=== PATIENT | female | born 1980 | race Caucasian/White ===

== ENCOUNTER 2021-06-25 04:30 | Emergency (ER) | payer OTHER, SELFPAY ==
--- NOTE | ~2021-06-25 | XR_ITS ---
XR wrist RT min 3V DATE: 06/25/2021 05:11 INDICATION: Fall. Wrist pain, swelling and deformity TECHNIQUE: 4 views COMPARISON: None FINDINGS: There is a comminuted impacted intra-articular fracture of the distal radius with up to 4.7 mm dorsal and 2 mm medial displacement, approximately 17 degrees apex anterior angulation with assoc iated dorsal inclination of distal radial articular surface. Small cortical chip fractures are laterally displaced from the tip of the ulnar styloid process. There is suggestion of widening at the radial ulnar joint suggesting possible radial ulnar subluxatio n. Radiocarpal alignment is intact. IMPRESSION: Impacted comminuted intra-articular fracture distal radius Small cortical avulsion fractures of the tip of the ulnar styloid process Possible radial ulnar subluxation Reviewed, dictated and finalized at location A.
[2021-06-25 04:47] VITALS: BP 124/78; PULSE 72; RESP 20; TEMP 36.6; O2SAT 98
--- NOTE | 2021-06-25 04:51 | ED.UPPEXIN ---
HPI - Extremity Injury (Upper) General Chief Complaint: Extremity Injury, Upper Stated Complaint: Right wrist injury Time Seen by Provider: 06/25/21 04:51 Source: patient Mode of arrival: ambulatory Limitations: no limitations History of Present Illness HPI narrative: 41-year-old woman comes in today complaining of right wrist pain and swelling that started after she fell while walking in her home this morning. She tripped over 1 of her children's toys and fell on her outstretched hand. She denies any numbness or tingling. complaint: injury to: right and wrist Onset (ago): minute(s) (30) Other Extremity Injury: Right: wrist Other injuries: none Place: home Severity: moderate Relieving factors: immobilization and rest Exacerbating factors: movement of extremity and other (Palpation) Context: fall Associated symptoms: denies other symptoms Related Data Allergies Allergy/AdvReac Type Severity Reaction Status Date / Time aspirin Allergy Unknown Verified 06/25/21 04:54 Review of Systems Review of Systems: All systems reviewed & are unremarkable except as noted in HPI and below Constitutional: Constitutional: Denies chills and Denies fever(s) Eyes: Eyes: Denies change in vision and Denies photophobia ENT: Denies epistaxis and Denies sore throat Cardiovascular: Cardiovascular: Denies chest pain and Denies radiating jaw, neck or arm pain Respiratory: Respiratory: Denies cough Gastrointestinal: Gastrointestinal: Denies abdominal pain, Denies nausea and Denies vomiting Genitourinary: Genitourinary: Denies nocturia and Denies dysuria Musculoskeletal: Musculoskeletal: Reports as per HPI, Denies back pain, Reports arthralgias and Reports joint swelling Integumentary/Breasts: Skin/Breast: Denies pruritus, Denies erythema and Denies rash Neurologic: Denies vertigo, Denies dizziness, Denies syncope, Denies focal weakness and Denies numbness Hematologic/Lymphatic: Hematologic/Lymphatic: Denies easy bleeding and Denies easy bruising Allergic/Immunologic: Allergic/Immunologic: Denies lip swelling and Denies throat swelling [facility] Surgical History Surgical History (Updated 06/25/21 @ 04:59 by Marcelo Aldridge MD) History of lumpectomy of both breasts Social History Social History (Updated 06/25/21 @ 05:00 by Marcelo Aldridge MD) Smoking status: Current every day smoker Alcohol intake: current Alcohol use details: Daily Substance use: current Substance use type: marijuana Living arrangements: with family Exam Const: General: healthy appearing and alert Orientation/consciousness: patient oriented x3 Limitations: no limitations Other: Moderate acute distress. Eyes: Conjunctivae: conjunctivae normal Pupils: Equal, round and reactive pupils present EOM: EOMs intact bilaterally Resp: Effort & Inspection: normal respiratory effort and not labored Auscultation: clear to auscultation bilaterally, no rales, no rhonchi and no wheezes Cardio: Rate: regular rate Rhythm: regular rhythm Heart sounds: no murmurs Skin: General skin exam: normal color, no jaundice and no pallor Rashes: no rashes Neuro: General: patient oriented x3, moves all extremities, no focal motor deficits and CN's II-XI intact bilaterally Speech: normal speech Gait exam (Neuro): Normal gait present Extrem: General: no clubbing, cyanosis or edema Other: Swelling at that distal radius and ulna on the right. Modest deformity present. Distal neurovascular exam is intact. Psych: Appearance: grossly normal and well kempt Mental Status: mental status grossly normal Affect: normal affect Attitude: cooperative Thought content: Yes Normal thought content present Course Vital Signs Vital signs: Vital Signs Temperature 36.6 C 06/25/21 04:47 Pulse Rate 72 06/25/21 04:47 Respiratory Rate 20 06/25/21 04:47 Blood Pressure 124/78 06/25/21 04:47 Pulse Oximetry 98 06/25/21 04:47 Temperature 36.6 C 06/25/21 04
[2021-06-25] MEDS: HYDROcodone/acetaminophen (*CRX) 5-325 MG TABLET 1 TAB PO (05:01)
[2021-06-25 05:55] VITALS: BP 115/86; PULSE 77; RESP 20; TEMP 36.4; O2SAT 95
== END 2021-06-25 06:00 | disposition home or self-care (01) ==
PROVIDERS: Emergency Provider Emergency Medicine; PCP Family Medicine
DX: S52.571A Other intraarticular fracture of lower end of right radius, initial encounter for closed fracture (principal); S52.611A Displaced fracture of right ulna styloid process, initial encounter for closed fracture; W19.XXXA Unspecified fall, initial encounter
CPT/HCPCS: 29125; 73110; 99283; 99284; A4565; A9270

== ENCOUNTER 2023-06-29 18:18 | Emergency (ER) | payer OTHER, SELFPAY ==
[2023-06-29 18:25] VITALS: BP 148/76; PULSE 79; RESP 18; TEMP 36.8; O2SAT 99
--- NOTE | 2023-06-29 18:49 | ED.LOWEXIN ---
HPI - Extremity Injury (Lower) General Chief Complaint: Extremity Injury, Lower Stated Complaint: right knee pain Time Seen by Provider: 06/29/23 18:23 History of Present Illness HPI Narrative: Patient is a healthy 43-year-old female here with right knee pain x2 weeks. She states 2 weeks ago she was walking in the middle the night to get a glass of water and twisted her knee. She states that she fell down onto her right knee and had some initial pain. She noted some redness on the anterior aspect of her knee which she thought was a rug burn. She has been attempting to use Tylenol at home intermittently with minimal relief of her symptoms. She notes that she was hoping it would go away so she did not see her primary care doctor yet. Today she is here because the pain has worsened. Pain seems to be worst when she is finished with a full day of work on her feet. She is able to ambulate without difficulty. She denies any fever, chills, the swelling. She notes that the pain feels like a sharp, vibrating sensation that extends to her proximal femur. No leg swelling, no history of PE or DVT. No additional injuries. Related Data Home Medications Medication Instructions Recorded Confirmed doxycycline hyclate 100 mg capsule 100 mg PO BID 06/29/23 06/29/23 Allergies Allergy/AdvReac Type Severity Reaction Status Date / Time aspirin Allergy Other Verified 06/29/23 18:29 Review of Systems Review of Systems: CONSTITUTIONAL: Denies fever, chills, or sweats. CARDIOVASCULAR: Denies chest pain, palpitations, or edema. RESPIRATORY: Denies cough or dyspnea. GASTROINTESTINAL: Denies abdominal pain, nausea, vomiting, or diarrhea. GENITOURINARY: Denies dysuria or hematuria. SKIN: Denies rash or itching. MUSCULOSKELETAL: Right knee pain NEUROLOGIC: Denies headache, numbness, or weakness. [facility] Surgical History Surgical History (System 01/23/22 @ 16:45 by Camelia Mon) History of lumpectomy of both breasts Social History Social History (System 01/23/22 @ 16:45 by Camelia Mon) Smoking status: Current every day smoker Alcohol intake: current Alcohol use details: Daily Substance use: current Substance use type: marijuana Living arrangements: with family Exam Narrative: GENERAL: Well-appearing, well-nourished, and in no acute distress. HEAD: Normocephalic, atraumatic. EYES: PERRLA and EOMI. ENT: Nares clear. Mucous membranes moist. NECK: Supple. CHEST: Clear to auscultation. No respiratory distress. HEART: Regular rate and rhythm. Normal peripheral pulses. ABDOMEN: Soft, nontender, nondistended. EXTREMITIES: Patient has lateral tenderness of the right knee, no effusion appreciated, no erythema appreciated. She has full range of motion of the joint with strong pulses and sensation distally. No hip, femur, tib-fib tenderness. SKIN: Warm, dry, no rash. NEURO: No focal deficits. Alert and oriented x3. PSYCH: Normal mood and affect. Course Course Emergency Course: Chart review performed, patient here for right knee pain which has been present for 2 weeks. Vital signs within normal limits. Patient seen evaluated, in no acute distress. I do not believe that she has a bony injury given the fact that she is full range of motion and has been able to bear weight for the last 2 weeks. Suspect she likely has a internal soft tissue injury such as a ligamentous tear. She would prefer to defer x-rays which I believe is appropriate. Advise that she should use naproxen b.i.d. as well as Tylenol. She is advised to do rest, ice, elevation and follow up with her primary doctor if it is not improving. At that point she would likely need some additional imaging and possibly referral to an orthopedic surgeon for further diagnostic testing / treatment. The results of pertinent diagnostic studies and exam findings were discussed. The patient?s provisional diagnosis and plan of care were discussed with the tata
== END 2023-06-29 19:30 | disposition home or self-care (01) ==
PROVIDERS: Emergency Provider Student in an Organized Health Care Education/Training Program; PCP Urology Pediatric Urology
DX: S83.91XA Sprain of unspecified site of right knee, initial encounter (principal); F17.200 Nicotine dependence, unspecified, uncomplicated; X50.0XXA Overexertion from strenuous movement or load, initial encounter
CPT/HCPCS: 99283